=== PATIENT | female | born 1955 | race Caucasian/White ===

== ENCOUNTER 2020-03-19 21:54 | Inpatient (IN) ==
[2020-03-19] MEDS ORDERED: ALUM/MAG/SIMETH/LIDO VISC 1:1 30 ML BOTTLE PO STA (22:33)
[2020-03-19] MEDS ORDERED: NITROGLYCERIN 2% OINT 1 INCH/GM PACK TOP STA (22:33)
[2020-03-19] MEDS ORDERED: ASPIRIN 325 MG TABLET PO STA (22:33)
[2020-03-19] MEDS ORDERED: MORPHINE 4 MG/1 ML VIAL IV STA (22:33)
[2020-03-19] MEDS ORDERED: ONDANSETRON 4 MG/2 ML VIAL IV STA (22:33)
[2020-03-19 23:03] LABS: Basophils # 0.1 10*3/uL (0.0-0.2); Basophils % 1.1 % (0.0-0.8); Eosinophils # 0.2 10*3/uL (0.0-0.87); Eosinophils % 1.7 % (0.00-10.9); Hematocrit 42.3 VOL% (35.7-47.0); Hemoglobin 13.6 GM/DL (12.0-16.0); Immature Granulocytes % 0.6 %; Immature Granulocytes Absolute 0.07 #; Lymphocytes # 1.4 10*3/uL (1.4-4.0); Lymphocytes % 11.7 % (21.3-54.2); Mean Corpuscular HGB Conc 32.2 GM/DL (32-36); Mean Corpuscular Volume 97.9 FL (87-102); Mean Platelet Volume 10.7 FL (9.6-12.0); Monocytes % 5.4 % (1.7-12.7); Neutrophils % 79.5 % (38.7-73.9); Platelet Count 303 T/CUMM (130-400); Red Blood Count 4.32 MC/CUMM (3.8-5.5); Red Cell Distribution Width 13.5 % (9.3-17.3); White Blood Count 11.8 T/CUMM (4-12)
[2020-03-19 23:17] LABS: PT Patient Result 10.7 SECS (9.8-11.9)
[2020-03-19 23:21] LABS: Apearance,Urine CLEAR (Clear); Bilirubin,Urine Negative (Negative); Blood, Urine Negative (Negative); Glucose,Urine (UA) 50 mg/dL (Negative); Ketones,Urine Negative (Negative); Mucus,Urine Occasional /LPF (Occasional); Nitrite,Urine Negative (Negative); Protein,Urine Negative; RBC,Urine 3 /HPF (0-4); Squamous Epithelial Cell,Urine Occasional /HPF (0-10); Urine Color Straw (Yellow); Urine Urobilinogen < 2.0 EU/DL (0.2-1.0); WBC,Urine 1 /HPF (0-6)
[2020-03-19 23:24] LABS: Albumin 3.9 G/DL (3.4-5.0); Bilirubin,Total 0.4 MG/DL (0.2-1.0); Total Protein 7.4 G/DL (6.4-8.3)
[2020-03-20] MEDS ORDERED: ONDANSETRON 4 MG/2 ML VIAL IV PRN (00:01)
[2020-03-20] MEDS ORDERED: NITROGLYCERIN SL 0.4 MG TABLET SL PRN (00:01)
[2020-03-20] MEDS ORDERED: BISACODYL 5 MG TABLET PO PRN (00:01)
[2020-03-20] MEDS ORDERED: DEXTROSE 50% 25 GM/50 ML VIAL IV PRN (00:01)
[2020-03-20] MEDS ORDERED: MORPHINE 4 MG/1 ML VIAL IV PRN (00:01)
[2020-03-20] MEDS ORDERED: GLUCAGON 1 MG VIAL IM PRN (00:01)
[2020-03-20] MEDS ORDERED: hydrALAZINE 20 MG/1 ML VIAL IV PRN (00:23)
[2020-03-20] MEDS ORDERED: ENOXAPARIN 100 MG/ML SYRINGE SUBCUT SCH ×2 (00:30→07:30)
[2020-03-20 02:44] LABS: Basophils # 0.1 10*3/uL (0.0-0.2); Basophils % 1.4 % (0.0-0.8); Eosinophils # 0.1 10*3/uL (0.0-0.87); Eosinophils % 1.4 % (0.00-10.9); Hematocrit 37.8 VOL% (35.7-47.0); Hemoglobin 12.1 GM/DL (12.0-16.0); Immature Granulocytes % 0.3 %; Immature Granulocytes Absolute 0.03 #; Lymphocytes # 1.9 10*3/uL (1.4-4.0); Lymphocytes % 21.1 % (21.3-54.2); Mean Corpuscular Volume 97.2 FL (87-102); Mean Platelet Volume 10.9 FL (9.6-12.0); Neutrophils % 68.8 % (38.7-73.9); Platelet Count 292 T/CUMM (130-400); Red Blood Count 3.89 MC/CUMM (3.8-5.5); Red Cell Distribution Width 13.4 % (9.3-17.3)
[2020-03-20 02:56] LABS: PT Patient Result 10.5 SECS (9.8-11.9); Partial Thromboplastin Time 27.9 SECS (23.9-33.8)
[2020-03-20 02:59] LABS: Albumin 3.5 G/DL (3.4-5.0); Bilirubin,Total 0.5 MG/DL (0.2-1.0); Calcium 8.5 MG/DL (8.5-10.1); Osmolality,Calculated 274.7 MOS/KG (273-304); Total Protein 6.5 G/DL (6.4-8.3)
[2020-03-20 03:03] LABS: Risk Ratio 5.18; VLDL CHOLESTEROL 36.8 MG/DL
[2020-03-20] MEDS: ACETAMINOPHEN 325 MG TABLET PO PRN ×3 (03:25→20:19)
[2020-03-20 05:27] LABS: CKMB % 5.6 %
[2020-03-20 05:28] LABS: Troponin I 1.43 NG/ML (0.00-0.045)
[2020-03-20] MEDS: PANTOPRAZOLE 40 MG TABLET PO SCH (08:06)
[2020-03-20] MEDS ORDERED: ENOXAPARIN 40 MG/0.4 ML SYRINGE SUBCUT SCH (09:00)
[2020-03-20] MEDS ORDERED: clonazePAM 0.5 MG TABLET PO SCH ×2 (09:00→11:00)
[2020-03-20] MEDS: rOPINIRole 0.25 MG TABLET PO SCH (09:47)
[2020-03-20] MEDS: OMEGA 3 ACID ETHYL ESTERS 1 GM CAPSULE PO SCH (09:48)
[2020-03-20] MEDS: METOPROLOL SUCCINATE XL 25 MG TABLET PO SCH ×3 (09:48→21:48)
[2020-03-20] MEDS: MULTIVITAMIN (CENTRUM) TABLET PO SCH (09:48)
[2020-03-20 10:41] LABS: CKMB % 7.2 %
[2020-03-20] MEDS ORDERED: clonazePAM 0.5 MG TABLET PO PRN ×3 (10:45→17:51)
[2020-03-20 10:46] LABS: Troponin I 4.24 NG/ML (0.00-0.045)
[2020-03-20] MEDS ORDERED: NITROGLYCERIN 2% OINT 1 INCH/GM PACK TOP ONE (11:04)
[2020-03-20] MEDS: SODIUM CHLORIDE 0.9% 1,000 ML IV SCH ×2 (11:28→22:21)
[2020-03-20] MEDS ORDERED: EPTIFIBATIDE 20,000 MCG/10 ML VIAL IV ONE (12:26)
[2020-03-20] MEDS ORDERED: EPTIFIBATIDE 75 MG/100 ML BOTTLE IV SCH (12:30)
[2020-03-20] MEDS ORDERED: DIAZEPAM 5 MG TABLET PO ONE (12:33)
[2020-03-20] MEDS ORDERED: POTASSIUM CHLORIDE RIDER 10 MEQ in PREMIX 1 EACH IV PRN (12:33)
[2020-03-20] MEDS ORDERED: diphenhydrAMINE CAP 25 MG CAPSULE PO ONE (12:33)
[2020-03-20] MEDS ORDERED: MAGNESIUM SULF RIDER 2 GM in PREMIX 1 EACH IV PRN (12:33)
[2020-03-20 12:41] LABS: CKMB % 6.1 %; Troponin I 2.93 NG/ML (0.00-0.045)
[2020-03-20] MEDS ORDERED: LIDOCAINE 1% 20 ML VIAL ONE ×3 (13:44→15:39)
[2020-03-20] MEDS ORDERED: HEPARIN/NACL 0.9% 2 UNITS/ML 1,000 ML IV ONE (13:44)
[2020-03-20] MEDS ORDERED: MIDAZOLAM 2 MG/2 ML VIAL ONE ×2 (13:46→14:05)
[2020-03-20] MEDS ORDERED: fentaNYL 100 MCG/2 ML VIAL ONE (13:46)
[2020-03-20] MEDS ORDERED: ENOXAPARIN 30 MG/0.3 ML SYRINGE ONE (14:14)
[2020-03-20] MEDS ORDERED: EPTIFIBATIDE 20,000 MCG/10 ML VIAL ONE (14:23)
[2020-03-20] MEDS ORDERED: EPTIFIBATIDE 75 MG/100 ML BOTTLE IV ONE (14:24)
[2020-03-20] MEDS ORDERED: TICAGRELOR 90 MG TABLET ONE (14:42)
[2020-03-20] MEDS ORDERED: HEPARIN/NACL 0.9% 2 UNITS/ML 1,500 ML IV ONE (15:27)
[2020-03-20 15:38] LABS: Basophils # 0.1 10*3/uL (0.0-0.2); Basophils % 0.6 % (0.0-0.8); Eosinophils # 0.1 10*3/uL (0.0-0.87); Eosinophils % 0.4 % (0.00-10.9); Hemoglobin 12.9 GM/DL (12.0-16.0); Immature Granulocytes % 0.6 %; Immature Granulocytes Absolute 0.08 #; Lymphocytes # 2.2 10*3/uL (1.4-4.0); Lymphocytes % 15.9 % (21.3-54.2); Mean Corpuscular HGB Conc 33.1 GM/DL (32-36); Mean Corpuscular Volume 96.5 FL (87-102); Mean Platelet Volume 10.3 FL (9.6-12.0); Neutrophils % 76.5 % (38.7-73.9); Platelet Count 325 T/CUMM (130-400); Red Blood Count 4.04 MC/CUMM (3.8-5.5); Red Cell Distribution Width 13.2 % (9.3-17.3); White Blood Count 14.1 T/CUMM (4-12)
[2020-03-20] MEDS ORDERED: PHENYLEPHRINE 50 MG/5 ML VIAL ONE (15:39)
[2020-03-20] MEDS ORDERED: MORPHINE 10 MG/1 ML VIAL ONE (16:01)
[2020-03-20 16:05] LABS: Apearance,Urine CLEAR (Clear); Bilirubin,Urine Negative (Negative); Blood, Urine Negative (Negative); Glucose,Urine (UA) Negative (Negative); Ketones,Urine Negative (Negative); Nitrite,Urine Negative (Negative); Protein,Urine Negative; RBC,Urine 4 /HPF (0-4); Urine Color Yellow (Yellow); Urine Urobilinogen < 2.0 EU/DL (0.2-1.0)
[2020-03-20] MEDS ORDERED: SODIUM CHLORIDE 0.9% 1,000 ML IV PRN (16:19)
[2020-03-20] MEDS ORDERED: HEPARIN/NACL 0.9% 2 UNITS/ML 500 ML IV ONE (16:31)
[2020-03-20] MEDS: AMIODARONE 200 MG TABLET PO SCH ×2 (21:13→21:48)
[2020-03-20] MEDS: ROSUVASTATIN 20 MG TABLET PO SCH (21:14)
[2020-03-20] MEDS: TICAGRELOR 90 MG TABLET PO SCH (21:48)
[2020-03-20] MEDS: rOPINIRole 1 MG TABLET PO SCH (22:03)
[2020-03-21 02:04] LABS: Basophils # 0.1 10*3/uL (0.0-0.2); Eosinophils # 0.2 10*3/uL (0.0-0.87); Eosinophils % 1.8 % (0.00-10.9); Hematocrit 32.4 VOL% (35.7-47.0); Hemoglobin 10.4 GM/DL (12.0-16.0); Immature Granulocytes % 0.3 %; Immature Granulocytes Absolute 0.03 #; Lymphocytes # 2.5 10*3/uL (1.4-4.0); Lymphocytes % 28.3 % (21.3-54.2); Mean Corpuscular HGB Conc 32.1 GM/DL (32-36); Mean Corpuscular Volume 96.1 FL (87-102); Mean Platelet Volume 10.9 FL (9.6-12.0); Monocytes % 10.8 % (1.7-12.7); Neutrophils % 57.8 % (38.7-73.9); Platelet Count 238 T/CUMM (130-400); Red Blood Count 3.37 MC/CUMM (3.8-5.5); Red Cell Distribution Width 14.8 % (9.3-17.3); White Blood Count 8.8 T/CUMM (4-12)
[2020-03-21 04:55] LABS: Basophils # 0.1 10*3/uL (0.0-0.2); Basophils % 0.7 % (0.0-0.8); Eosinophils # 0.1 10*3/uL (0.0-0.87); Eosinophils % 1.3 % (0.00-10.9); Hematocrit 31.3 VOL% (35.7-47.0); Hemoglobin 10.1 GM/DL (12.0-16.0); Immature Granulocytes % 0.4 %; Immature Granulocytes Absolute 0.04 #; Lymphocytes # 1.5 10*3/uL (1.4-4.0); Lymphocytes % 16.6 % (21.3-54.2); Mean Corpuscular HGB Conc 32.3 GM/DL (32-36); Mean Corpuscular Volume 96.9 FL (87-102); Mean Platelet Volume 10.7 FL (9.6-12.0); Monocytes % 10.2 % (1.7-12.7); Neutrophils % 70.8 % (38.7-73.9); Platelet Count 216 T/CUMM (130-400); Red Blood Count 3.23 MC/CUMM (3.8-5.5); Red Cell Distribution Width 14.9 % (9.3-17.3); White Blood Count 9.2 T/CUMM (4-12)
[2020-03-21 06:14] LABS: Calcium 7.6 MG/DL (8.5-10.1); Osmolality,Calculated 276.5 MOS/KG (273-304)
[2020-03-21] MEDS ORDERED: ENOXAPARIN 40 MG/0.4 ML SYRINGE SUBCUT SCH (07:30)
[2020-03-21] MEDS: SODIUM CHLORIDE 0.9% 1,000 ML IV SCH ×2 (07:49→08:45)
[2020-03-21] MEDS: TICAGRELOR 90 MG TABLET PO SCH ×2 (08:37→21:41)
[2020-03-21] MEDS: ASPIRIN EC 81 MG TABLET PO SCH (08:37)
[2020-03-21] MEDS: PANTOPRAZOLE 40 MG TABLET PO SCH (08:37)
[2020-03-21] MEDS: rOPINIRole 0.25 MG TABLET PO SCH (08:37)
[2020-03-21] MEDS: METOPROLOL SUCCINATE XL 25 MG TABLET PO SCH ×2 (08:37→21:38)
[2020-03-21] MEDS: MULTIVITAMIN (CENTRUM) TABLET PO SCH (08:37)
[2020-03-21] MEDS: AMIODARONE 200 MG TABLET PO SCH ×2 (08:37→21:41)
[2020-03-21] MEDS: OMEGA 3 ACID ETHYL ESTERS 1 GM CAPSULE PO SCH (08:37)
[2020-03-21] MEDS ORDERED: ASPIRIN EC 325 MG TABLET PO SCH (09:00)
[2020-03-21] MEDS: ACETAMINOPHEN 325 MG TABLET PO PRN (11:24)
[2020-03-21] MEDS: ROSUVASTATIN 20 MG TABLET PO SCH (21:41)
[2020-03-21] MEDS: rOPINIRole 1 MG TABLET PO SCH (21:41)
[2020-03-22] MEDS: ACETAMINOPHEN 325 MG TABLET PO PRN ×2 (04:55→21:13)
[2020-03-22] MEDS: rOPINIRole 0.25 MG TABLET PO SCH (09:37)
[2020-03-22] MEDS: MULTIVITAMIN (CENTRUM) TABLET PO SCH (09:38)
[2020-03-22] MEDS: ASPIRIN EC 81 MG TABLET PO SCH (09:38)
[2020-03-22] MEDS: METOPROLOL SUCCINATE XL 25 MG TABLET PO SCH ×2 (09:38→21:14)
[2020-03-22] MEDS: PANTOPRAZOLE 40 MG TABLET PO SCH (09:38)
[2020-03-22] MEDS: OMEGA 3 ACID ETHYL ESTERS 1 GM CAPSULE PO SCH (09:38)
[2020-03-22] MEDS: TICAGRELOR 90 MG TABLET PO SCH ×2 (09:38→21:13)
[2020-03-22] MEDS: AMIODARONE 200 MG TABLET PO SCH ×2 (09:38→21:14)
[2020-03-22] MEDS ORDERED: AMIODARONE INJ 150 MG in DEXTROSE 5% 100 ML IV ONE (09:41)
[2020-03-22] MEDS ORDERED: AMIODARONE INJ 450 MG in DEXTROSE 5% 241 ML IV SCH (10:00)
[2020-03-22] MEDS: rOPINIRole 1 MG TABLET PO SCH (21:13)
[2020-03-22] MEDS: ROSUVASTATIN 20 MG TABLET PO SCH (21:13)
[2020-03-22] MEDS: AMIODARONE INJ 450 MG in DEXTROSE 5% 241 ML IV SCH (21:14)
[2020-03-23 06:06] LABS: Basophils # 0.1 10*3/uL (0.0-0.2); Basophils % 0.9 % (0.0-0.8); Eosinophils # 0.4 10*3/uL (0.0-0.87); Eosinophils % 3.9 % (0.00-10.9); Hematocrit 31.5 VOL% (35.7-47.0); Hemoglobin 10.5 GM/DL (12.0-16.0); Immature Granulocytes % 0.5 %; Immature Granulocytes Absolute 0.05 #; Lymphocytes # 1.5 10*3/uL (1.4-4.0); Lymphocytes % 13.9 % (21.3-54.2); Mean Corpuscular HGB Conc 33.3 GM/DL (32-36); Mean Corpuscular Volume 92.4 FL (87-102); Mean Platelet Volume 10.9 FL (9.6-12.0); Monocytes % 10.2 % (1.7-12.7); Neutrophils % 70.6 % (38.7-73.9); Platelet Count 245 T/CUMM (130-400); Red Blood Count 3.41 MC/CUMM (3.8-5.5); Red Cell Distribution Width 14.4 % (9.3-17.3); White Blood Count 10.5 T/CUMM (4-12)
[2020-03-23 06:53] LABS: Calcium 8.6 MG/DL (8.5-10.1); Osmolality,Calculated 274.7 MOS/KG (273-304)
[2020-03-23] MEDS: OMEGA 3 ACID ETHYL ESTERS 1 GM CAPSULE PO SCH (09:21)
[2020-03-23] MEDS: rOPINIRole 0.25 MG TABLET PO SCH (09:21)
[2020-03-23] MEDS: ASPIRIN EC 81 MG TABLET PO SCH (09:22)
[2020-03-23] MEDS: METOPROLOL SUCCINATE XL 25 MG TABLET PO SCH ×2 (09:22→20:50)
[2020-03-23] MEDS: AMIODARONE 200 MG TABLET PO SCH ×2 (09:22→20:48)
[2020-03-23] MEDS: PANTOPRAZOLE 40 MG TABLET PO SCH (09:22)
[2020-03-23] MEDS: TICAGRELOR 90 MG TABLET PO SCH ×2 (09:22→20:48)
[2020-03-23] MEDS: MULTIVITAMIN (CENTRUM) TABLET PO SCH (09:22)
[2020-03-23] MEDS ORDERED: BUMETANIDE 1 MG/4 ML VIAL IV ONE (10:10)
[2020-03-23] MEDS: AMIODARONE INJ 450 MG in DEXTROSE 5% 241 ML IV SCH (12:05)
[2020-03-23] MEDS: ROSUVASTATIN 20 MG TABLET PO SCH (20:53)
[2020-03-23] MEDS: rOPINIRole 1 MG TABLET PO SCH (20:53)
[2020-03-24 06:33] LABS: Basophils # 0.1 10*3/uL (0.0-0.2); Basophils % 0.7 % (0.0-0.8); Eosinophils # 0.5 10*3/uL (0.0-0.87); Eosinophils % 4.4 % (0.00-10.9); Hematocrit 30.5 VOL% (35.7-47.0); Hemoglobin 9.9 GM/DL (12.0-16.0); Immature Granulocytes % 0.5 %; Immature Granulocytes Absolute 0.05 #; Lymphocytes # 1.7 10*3/uL (1.4-4.0); Lymphocytes % 15.7 % (21.3-54.2); Mean Corpuscular HGB Conc 32.5 GM/DL (32-36); Mean Corpuscular Volume 95.3 FL (87-102); Mean Platelet Volume 10.9 FL (9.6-12.0); Monocytes % 10.7 % (1.7-12.7); Platelet Count 295 T/CUMM (130-400); Red Cell Distribution Width 14.5 % (9.3-17.3); White Blood Count 10.7 T/CUMM (4-12)
[2020-03-24 06:57] LABS: Calcium 8.7 MG/DL (8.5-10.1)
[2020-03-24 08:18] VITALS: BP 129/72
[2020-03-24] MEDS: rOPINIRole 0.25 MG TABLET PO SCH (08:57)
[2020-03-24] MEDS: METOPROLOL SUCCINATE XL 25 MG TABLET PO SCH (08:57)
[2020-03-24] MEDS: MULTIVITAMIN (CENTRUM) TABLET PO SCH (08:57)
[2020-03-24] MEDS: PANTOPRAZOLE 40 MG TABLET PO SCH (08:57)
[2020-03-24] MEDS: OMEGA 3 ACID ETHYL ESTERS 1 GM CAPSULE PO SCH (08:57)
[2020-03-24] MEDS: AMIODARONE 200 MG TABLET PO SCH (08:57)
[2020-03-24] MEDS: ASPIRIN EC 81 MG TABLET PO SCH (08:57)
[2020-03-24] MEDS: TICAGRELOR 90 MG TABLET PO SCH (08:57)
== END 2020-03-24 10:31 | disposition home or self-care (01) | DRG 251 ==
LOC: N.ED 21:54 → N.EDINP 21:54 → SUATTDRO 03-20 00:01 → N.EDINP 03-20 00:31 → N.TELES 03-20 01:58 → N.CLINP 03-20 17:53 → N.TELES 03-21 15:25
PROVIDERS: ADMIT Internal Medicine; ATTEND Internal Medicine Cardiovascular Disease
PROC: CLCCHCL (ICD-10-PCS; 2020-03-20 16:45)

== ENCOUNTER 2022-07-02 10:56 | Observation (INO) ==
[2022-07-02] MEDS ORDERED: DILTIAZEM 25 MG/5 ML VIAL IV ONE (12:00)
[2022-07-02] MEDS ORDERED: DILTIAZEM 50 MG/10 ML VIAL IV ONE (12:01)
[2022-07-02 12:07] LABS: Basophils # 0.1 10*3/uL (0.0-0.2); Basophils % 1.6 % (0.0-0.8); Eosinophils # 0.2 10*3/uL (0.0-0.87); Eosinophils % 2.1 % (0.00-10.9); Hematocrit 43.2 VOL% (35.7-47.0); Hemoglobin 14.3 GM/DL (12.0-16.0); Immature Granulocytes % 0.3 %; Immature Granulocytes Absolute 0.02 #; Lymphocytes # 1.6 10*3/uL (1.4-4.0); Lymphocytes % 22.2 % (21.3-54.2); Mean Corpuscular HGB Conc 33.1 GM/DL (32-36); Mean Corpuscular Volume 93.5 FL (87-102); Mean Platelet Volume 10.9 FL (9.6-12.0); Monocytes # 0.7 10*3/uL (0.11-0.8); Monocytes % 9.2 % (1.7-12.7); Neutrophils % 64.6 % (38.7-73.9); Platelet Count 311 T/CUMM (130-400); Red Blood Count 4.62 MC/CUMM (3.8-5.5); Red Cell Distribution Width 13.2 % (9.3-17.3); White Blood Count 7.3 T/CUMM (4-12)
[2022-07-02] MEDS ORDERED: DILTIAZEM 25 MG/5 ML VIAL IV STA (12:07)
[2022-07-02] MEDS ORDERED: DILTIAZEM INJ 100 MG in SODIUM CHLORIDE 0.9% 100 ML IV SCH (12:30)
[2022-07-02 12:43] LABS: Albumin 4.3 G/DL (3.4-5.0); Bilirubin,Total 1.1 MG/DL (0.20-1.00); Calcium 9.8 MG/DL (8.5-10.1); Osmolality,Calculated 282.3 MOS/KG (273-304); Potassium 3.8 MMOL/L (3.5-5.1); Total Protein 7.3 G/DL (6.4-8.2)
[2022-07-02 12:53] LABS: Thyroid Stimulating Hormone 1.33 uIU/ml (0.358-3.74)
[2022-07-02 12:59] LABS: Barbiturates Screen,Urine Negative (Negative); Benzodiazepines Screen,Urine Negative (Negative); Cannabinoid Screen,Urine Negative (Negative); Opiate Screen,Urine Negative (Negative); Phencyclidine Screen,Urine Negative (Negative)
[2022-07-02] MEDS ORDERED: ACETAMINOPHEN 325 MG TABLET PO ONE ×2 (14:03→15:52)
[2022-07-02] MEDS ORDERED: ONDANSETRON 4 MG/2 ML VIAL IV PRN (14:44)
[2022-07-02] MEDS ORDERED: ENOXAPARIN 40 MG/0.4 ML SYRINGE SUBCUT SCH (15:00)
[2022-07-02] MEDS: PANTOPRAZOLE 40 MG TABLET PO SCH (15:54)
[2022-07-02] MEDS ORDERED: CLONAZEPAM 1 MG PO PRN (20:44)
[2022-07-02] MEDS ORDERED: MONTELUKAST CHEW 5 MG TABLET PO PRN (20:44)
[2022-07-02] MEDS ORDERED: ASPIRIN EC 81 MG TABLET PO SCH (21:00)
[2022-07-02] MEDS ORDERED: rOPINIRole 0.25 MG TABLET PO SCH (21:00)
[2022-07-02] MEDS ORDERED: ROSUVASTATIN 10 MG TABLET PO SCH (21:00)
[2022-07-02] MEDS ORDERED: clonazePAM 0.5 MG TABLET PO PRN (21:03)
[2022-07-02] MEDS: DOCUSATE SODIUM 100 MG CAPSULE PO SCH (21:47)
[2022-07-02] MEDS: APIXABAN 5 MG TABLET PO SCH (21:48)
[2022-07-03 05:57] LABS: Basophils # 0.1 10*3/uL (0.0-0.2); Basophils % 1.8 % (0.0-0.8); Eosinophils # 0.3 10*3/uL (0.0-0.87); Eosinophils % 4.1 % (0.00-10.9); Hematocrit 41.1 VOL% (35.7-47.0); Hemoglobin 13.3 GM/DL (12.0-16.0); Immature Granulocytes % 0.3 %; Immature Granulocytes Absolute 0.02 #; Lymphocytes # 2.5 10*3/uL (1.4-4.0); Lymphocytes % 37.8 % (21.3-54.2); Mean Corpuscular HGB Conc 32.4 GM/DL (32-36); Mean Corpuscular Volume 94.9 FL (87-102); Monocytes # 0.9 10*3/uL (0.11-0.8); Monocytes % 13.5 % (1.7-12.7); Neutrophils % 42.5 % (38.7-73.9); Platelet Count 292 T/CUMM (130-400); Red Blood Count 4.33 MC/CUMM (3.8-5.5); White Blood Count 6.5 T/CUMM (4-12)
[2022-07-03 06:42] LABS: Albumin 3.5 G/DL (3.4-5.0); Bilirubin,Total 0.9 MG/DL (0.20-1.00); Calcium 9.1 MG/DL (8.5-10.1); Osmolality,Calculated 281.3 MOS/KG (273-304); Potassium 3.9 MMOL/L (3.5-5.1); Risk Ratio 2.67; Total Protein 6.4 G/DL (6.4-8.2); VLDL Cholesterol 35.8 MG/DL
[2022-07-03] MEDS ORDERED: DILTIAZEM 30 MG TABLET PO PRN (06:59)
[2022-07-03] MEDS: DILTIAZEM 30 MG TABLET PO SCH ×2 (07:51→10:47)
[2022-07-03] MEDS ORDERED: rOPINIRole 0.25 MG TABLET PO SCH (09:00)
[2022-07-03] MEDS ORDERED: ASCORBIC ACID 500 MG TABLET PO SCH (09:00)
[2022-07-03] MEDS: PANTOPRAZOLE 40 MG TABLET PO SCH (10:47)
[2022-07-03] MEDS: APIXABAN 5 MG TABLET PO SCH (10:47)
[2022-07-03] MEDS: DOCUSATE SODIUM 100 MG CAPSULE PO SCH (10:47)
[2022-07-03 12:43] VITALS: BP 110/72
== END 2022-07-03 12:59 | disposition home or self-care (01) ==
LOC: SUATTDRO → N.EDINP 10:56 → N.ED 10:56 → SUATTDRO 14:44 → N.TELES 17:35
PROVIDERS: ADMIT Family Medicine; ATTEND Phlebology